=== PATIENT | female | born 1995 | race Hispanic/Latino ===

== ENCOUNTER 2022-07-16 13:41 | Emergency (ER) | payer BC ==
[~2022-07-16] VITALS: Ht 170.2 cm; Wt 108.9 kg
[2022-07-16 13:45] VITALS: O2SAT 100
[2022-07-16] MEDS ORDERED: SODIUM CHLORIDE 0.9% 1000ML 1,000 ML ONE (13:51)
[2022-07-16] MEDS ORDERED: ONDANSETRON HCL INJ 2MG/ML 2ML 2 MG/ML VIAL ONE (13:51)
[2022-07-16] MEDS ORDERED: SODIUM CHLORIDE 0.9% 1000ML 1,000 ML IV SCH (14:30)
== END 2022-07-16 14:59 | disposition home or self-care (01) ==
LOC: ER 13:58
DX: K22.4 Dyskinesia of esophagus (principal); R09.89 Other specified symptoms and signs involving the circulatory and respiratory systems; J45.909 Unspecified asthma, uncomplicated
CPT/HCPCS: 99284; J2405; J7030